=== PATIENT | female | born 2000 ===

== ENCOUNTER → 2023-08-08 12:56 | Outpatient (BNVA) | payer OTHER, SELFPAY | PROVIDERS: Visit Provider Physician Assistant | DX: S93.401A Sprain of unspecified ligament of right ankle, initial encounter (principal); X50.1XXA Overexertion from prolonged static or awkward postures, initial encounter; W01.0XXA Fall on same level from slipping, tripping and stumbling without subsequent striking against object, initial encounter | CPT/HCPCS: 29515; 99203 ==

== ENCOUNTER → 2023-08-16 09:47 | Outpatient (BNVA) | payer OTHER, SELFPAY | PROVIDERS: Visit Provider Physician Assistant Medical | DX: S93.401A Sprain of unspecified ligament of right ankle, initial encounter (principal); X50.1XXA Overexertion from prolonged static or awkward postures, initial encounter; W01.0XXA Fall on same level from slipping, tripping and stumbling without subsequent striking against object, initial encounter | CPT/HCPCS: 99213 ==

== ENCOUNTER → 2023-08-23 10:31 | Outpatient (BNVA) | payer OTHER, SELFPAY | PROVIDERS: Visit Provider Physician Assistant Medical | DX: S93.401D Sprain of unspecified ligament of right ankle, subsequent encounter (principal); X50.1XXD Overexertion from prolonged static or awkward postures, subsequent encounter | CPT/HCPCS: 99213 ==

== ENCOUNTER 2023-08-27 13:35 | Outpatient (AMB) | payer OTHER, SELFPAY ==
--- NOTE | 2023-08-27 13:48 | A.OFFVIS_ITS ---
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 Patient reports it was a rainy day and had slipped on the wet floor at work causing her to roll her ankle prior to her fall. She was seen at work connection who referred patient to orthopedics due to her continued pain and swelling. Currently she has constant pain that becomes worse with any weight bear. Her current pain level is 7 out of 10. Finds little to no relief with ibuprofen however helps with swelling. Finds pain relief with OTC lidocaine cream. Patient has been out of work since injury. Allergies No Known Allergies Allergy (Verified 08/27/23 13:53) HPI Plant Nursery Worker- right ankle sprain HPI Details 22-year-old female who presents to the [facility] today for evaluation of right ankle work injury s/p slipping on wet floor on a rainy day, causing her to roll her ankle prior to her fall, 08/08/23. She was seen at work connection for her continued pain and swelling where she was referred to our office. She currently states she has constant pain in her ankle which is aggravated with weight bearing. She rates the pain as 7 on the scale of 0-10. She finds swelling relief with ibuprofen but finds minimal relief otherwise. She finds relief with OTC lidocaine cream. She has been out of work since her DOI. [facility] Social History (Updated 08/27/23 @ 13:56 by Dennise Call Roscoe) Patient Tobacco Use Status: Never used Tobacco Substance Use Type: Marijuana Current occupational status: employed Current occupation: Home Health Aide Review of Systems Const All systems reviewed & are unremarkable except as noted in HPI and below Physical Exam Vital Signs: BMI result Body Mass Index 54.8 Const General: cooperative, healthy appearing, comfortable, no acute distress, well developed and alert Orientation/consciousness: patient oriented x3 HEENT Head: Yes normal to inspection, Yes normocephalic and Yes atraumatic Eyes General: appearance normal, both eyes and all related structures Resp Effort & Inspection: normal respiratory effort and able to speak in complete sentences Cardio Rate: regular rate Peripheral pulses: Peripheral pulses 2+ throughout GI Palpation (GI): Soft to palpation Skin Lesions: no lesions Rashes: no rashes Neuro General: patient oriented x3 Extrem Other: Right ankle: Normal to inspection with minimal swelling over the lateral malleolus with tenderness along the soft tissues.No discomfort along the posterior aspect of the ankle, no deformity along the Achilles tendon, negative Garcia?s. No pain along the syndesmosis or anterior tibia. No laxity, NVI. Results Reviewed Results Reviewed: xrays of the right ankle obtained on 08/08/23 are negative for acute fracture or dislocations Assessment & Plan Assessment & Plan (1) Right ankle sprain: Code(s): S93.401A - Sprain of unspecified ligament of right ankle, initial encounter Qualifiers: Encounter type: initial encounter Involved ligament of ankle: anterior talofibular ligament Qualified Code(s): S93.491A - Sprain of other ligament of right ankle, initial encounter Plan She was placed in a short boot weight bearing as tolerated. She will transition into a lace up ankle brace over the next few weeks with physical therapy. She will return to work on September 03 working half day only until her next follow-up visit in 6-8 weeks. Orders: Orders PT Evaluation and Treatment Today S93.401A - Sprain of unspecified ligament of right ankle, initial encounter Patient Instructions: Scribed for Liv Lilly PA-C, by David Rodriguez biomedical equipment specialist, on 08/27/2023 at 1:45 PM EST. ILiv PA-C, have personally reviewed and agree with the information entered by the scribe. Coding Level of Care Code New Pt Level 3 (85474) Diagnoses Sprain of anterior talofibular ligament of right ankle, initial encounter S93.491A Encounter type: initial encounter Involved ligament of ankle: anterior talofibular ligament
[2023-08-27 13:56] VITALS: BMI 54.8
== END 2023-08-27 14:40 | disposition home or self-care (01) ==
PROVIDERS: Visit Provider Physician Assistant
DX: S93.491A Sprain of other ligament of right ankle, initial encounter (principal); W01.0XXA Fall on same level from slipping, tripping and stumbling without subsequent striking against object, initial encounter; Y99.0 Civilian activity done for income or pay; Z04.2 Encounter for examination and observation following work accident
CPT/HCPCS: 99203

== ENCOUNTER → 2023-08-27 13:35 | Outpatient (BNVA) | payer OTHER, SELFPAY | PROVIDERS: Visit Provider Physician Assistant | DX: S93.491A Sprain of other ligament of right ankle, initial encounter (principal) | CPT/HCPCS: 99202 ==

== ENCOUNTER 2023-10-08 08:56 | Outpatient (AMB) | payer OTHER, SELFPAY ==
--- NOTE | 2023-10-08 09:06 | A.OFFVIS_ITS ---
Intake Vital Signs 10/08/23 09:10 Height 5 ft 7 in Weight 350 lb BMI 54.8 Intake Visit Reasons: OV- right ankle sprain Intake Note: Tim carter 22 year old female presents today for a follow up of right ankle injury, DOI 08/08/23. Patient reports that she has transitioned into an ankle brace. She has not been able to start PT however she was given at home exercises until she is able to attend. States improvement in her pain, however she continues to have intermittent dull pain in the medial side of ankle that radiates up her leg. Allergies No Known Allergies Allergy (Verified 10/08/23 09:10) HPI OV- right ankle sprain HPI Details 22-year-old female who returns to the [facility] today for a follow-up of right ankle injury, 08/08/23. She states she has improvement in her pain however she continues to have intermittent dull pain at the medial aspect of her ankle which radiates up to her leg. Her pain is aggravated at night. She was unable to start physical therapy however she was she was given some home exercises which she has been doing as instructed. She is using a brace and has been able to bear weight on her leg. She takes ibuprofen for her pain with benefits. [facility] Social History Patient Tobacco Use Status: Never used Tobacco Substance Use Type: Marijuana Current occupational status: employed Current occupation: Home Health Aide Review of Systems Const All systems reviewed & are unremarkable except as noted in HPI and below Physical Exam Vital Signs: BMI result Body Mass Index 54.8 Extrem Other: Right ankle: Normal to inspection. She has no tenderness to palpation throughout the ankle. She has good ROM and no pain with strength testing against resistance. NVI. Assessment & Plan Assessment & Plan (1) Right ankle sprain: Code(s): S93.401A - Sprain of unspecified ligament of right ankle, initial encounter Qualifiers: Encounter type: initial encounter Involved ligament of ankle: anterior talofibular ligament Qualified Code(s): S93.491A - Sprain of other ligament of right ankle, initial encounter Plan She will continue to wear the lace up ankle brace with any type of impact activities or prolonged standing at work. She will ween out of the brace as necessary. She will start working on physical therapy and I will have office to reach out to them as well. She will return to work tomorrow without restrictions and if symptoms persist or worsens, patient will contact the office, otherwise follow-up as needed. Patient Instructions: Scribed for Liv Lilly PA-C, by David Rodriguez pesticide use medical coordinator, on 10/08/2023 at 8:45 AM EST. Liv Lopez PA-C, have personally reviewed and agree with the information entered by the scribe. Coding Level of Care Code Est Pt Level 3 (06686) Diagnoses Sprain of anterior talofibular ligament of right ankle, initial encounter S93.491A Encounter type: initial encounter Involved ligament of ankle: anterior talofibular ligament
[2023-10-08 09:10] VITALS: BMI 54.8
== END 2023-10-08 09:35 | disposition home or self-care (01) ==
PROVIDERS: Visit Provider Physician Assistant
DX: S93.491A Sprain of other ligament of right ankle, initial encounter (principal)
CPT/HCPCS: 99213

== ENCOUNTER → 2023-10-08 08:56 | Outpatient (BNVA) | payer OTHER, SELFPAY | PROVIDERS: Visit Provider Physician Assistant | DX: S93.491A Sprain of other ligament of right ankle, initial encounter (principal) | CPT/HCPCS: 99212 ==